=== PATIENT | male | born 1995 | race Caucasian/White ===

== ENCOUNTER 2025-08-28 01:07 | Emergency (ER) | payer MEDICAID ==
[~2025-08-28] VITALS: Ht 175.3 cm; Wt 127.0 kg
[2025-08-28 01:29] VITALS: O2SAT 99
[2025-08-28] MEDS: ACETAMINOPHEN 500MG TABLET PO ONE (02:04)
[2025-08-28] MEDS ORDERED: IBUP-1455 MT (02:46)
[2025-08-28 02:50] VITALS: BP 160/93; PULSE 69; RESP 19; TEMP 36.8; O2SAT 99
== END 2025-08-28 02:54 | disposition home or self-care (01) ==
LOC: ER 01:36
DX: S09.90XA Unspecified injury of head, initial encounter (principal); W22.8XXA Striking against or struck by other objects, initial encounter; Y93.89 Activity, other specified; Y92.89 Other specified places as the place of occurrence of the external cause; Y99.8 Other external cause status
CPT/HCPCS: 99284